=== PATIENT | female | born 1970 | race Asian ===

== ENCOUNTER 2018-12-04 21:17 | Emergency (ER) | payer MEDICAID ==
[~2018-12-04] VITALS: Wt 75.0 kg
--- NOTE | 2018-12-04 21:29 | ERD ---
ER Documentation Chief Complaint Chief Complaint niels ra from [facility] for first time seizures HPI This is a 48-year-old female who was brought in for first time seizure. 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 Just prior to arrival the nurse varun sed her have a tonic seizure for about a minute with a postictal state. Patient is in a relatively vegetative state with the family members here stay on occasion she can write with a pen. Patient has had a cough with a lot of productive sputum from her trach site. I do not know she had fever ROS All systems reviewed and are negative except as per history of present illness. Allergies Allergies: Coded Allergies: No Known Allergy (Unverified , 12/04/18) FmHx Family History: No coronary disease Physical Exam Vitals Vital Signs Date Temp Pulse Resp B/P (MAP) Pulse Ox O2 O2 Flow FiO2 Time Delivery Rate 12/05/18 85 14 100 30 02:06 12/04/18 86 16 99 30 23:55 12/04/18 98 20 98 30 21:52 12/04/18 98.1 98 16 105/81 100 21:24 (89) Physical Exam Const: Well-developed, well-nourished Head: Atraumatic, normocephalic Eyes: Normal Conjunctiva, PERRLA, EOMI, normal sclera, no nystagmus ENT: Normal External Ears, Nose and Mouth, moist mucus membranes. Neck: Full range of motion. No meningismus, no lymphadenopathy, copious yellow sputum from the trach. Resp: Some bilateral coarse rhonchi Cardio: Regular rate and rhythm, no murmurs, S1 S2 present Abd: Soft, non tender x 4, non distended. Normal bowel sounds, no guarding or rebound, no pulsitile abdominal masses or bruits Skin: No petechiae or rashes, no ecchymosis , no maculopapular rash Back: No midline or flank tenderness Ext: No cyanosis, or edema, FROM x 4, normal inspection, neurovascularly intact x 4 Neur: Awake and alert, STR 5/5 x 4, sensation intact x 4, no focal findings, cerebellum intact Psych: Normal Mood and Affect Result Diagram: 12/04/18 2215 12/04/18 2215 Results 24 hrs Laboratory Tests Test 12/04/18 22:12 12/04/18 22:15 12/04/18 23:39 Urine Color YELLOW Urine Clarity TURBID Urine pH 8.0 Urine Specific [place] 1.014 Urine Ketones NEGATIVE mg/dL Urine Nitrite NEGATIVE mg/dL Urine Bilirubin NEGATIVE mg/dL Urine Urobilinogen NEGATIVE mg/dL Urine Leukocyte Esterase 2+ Marsha/ul Urine Microscopic RBC 10 /HPF Urine Microscopic WBC 22 /HPF Urine Amorphous Crystals FEW /HPF Urine Bacteria MODERATE /HPF Urine Mucus FEW /HPF Urine Hemoglobin NEGATIVE mg/dL Urine Glucose NEGATIVE mg/dL Urine Total Protein NEGATIVE mg/dl White Blood Count 7.8 10^3/ul Red Blood Count 3.79 10^6/ul Hemoglobin 11.5 g/dl Hematocrit 35.9 % Mean Corpuscular Volume 94.7 fl Mean Corpuscular Hemoglobin 30.3 pg Mean Corpuscular 32.0 g/dl Hemoglobin Concent Red Cell Distribution Width 14.2 % Platelet Count 306 10^3/UL Mean Platelet Volume 9.9 fl Immature Granulocytes % 0.300 % Neutrophils % 66.7 % Lymphocytes % 20.2 % Monocytes % 6.5 % Eosinophils % 5.9 % Basophils % 0.4 % Nucleated Red Blood Cells % 0.0 /100WBC Immature Granulocytes # 0.020 10^3/ul Neutrophils # 5.2 10^3/ul Lymphocytes # 1.6 10^3/ul Monocytes # 0.5 10^3/ul Eosinophils # 0.5 10^3/ul Basophils # 0.0 10^3/ul Nucleated Red Blood Cells # 0.0 10^3/ul Prothrombin Time 12.4 Sec Prothrombin Time Ratio 1.0 INR International 0.91 Normalized Ratio Activated Partial Thromboplast 24.8 Sec Time Sodium Level 143 mmol/L Potassium Level 4.0 mmol/L Chloride Level 104 mmol/L Carbon Dioxide Level 32 mmol/L Anion Gap 7 Blood Urea Nitrogen 20 mg/dl Creatinine 0.30 mg/dl Est Glomerular Filtrat > 60 mL/min Rate mL/min Glucose Level 108 mg/dl Calcium Level 10.0 mg/dl Total Bilirubin 0.3 mg/dl Direct Bilirubin 0.00 mg/dl Indirect Bilirubin 0.3 mg/dl Aspartate Amino 50 IU/L Transf (AST/SGOT) Alanine 67 IU/L Aminotransferase (ALT/SGPT) Alkaline Phosphatase 141 IU/L Total Protein 7.5 g/dl Albumin 4.0 g/dl Globulin 3.50 g/dl Albumin/Globulin Ratio 1.14 Bedside Glucose 108 mg/dL Current Medications Medications Dose Sig/Anibal Start Time Status Last (Trade) Ordered Route PRN Stop Time Admin Dose Reason Admin Sodium 1,000 ml @ Q1H STAT 12/04/18 DC 12/04/18 Chloride 1,000 mls/hr IV 21:30 22:18 12/04/18 22:29 100 ml @ ONCE STAT 12/04/18 DC 12/04/18 Levetiracetam 400 mls/hr IVPB 21:30 22:58 12/04/18 21:44 Cefepime HCl 50 ml @ ONCE STAT 12/04/18 DC 12/04/18 100 mls/hr IVPB 21:30 22:18 12/04/18 21:59 Vancomycin 250 ml @ ONCE STAT 12/04/18 DC 12/04/18 HCl 125 mls/hr IVPB 21:30 23:29 12/04/18 23:29 Procedures/MDM Ordering MD: TARA LI DO Location: E/R Room/Bed: PROCEDURE: XR Chest. CLINICAL INDICATION: Seizure TECHNIQUE: Single frontal view of the chest was obtained COMPARISON: None FINDINGS: The heart and mediastinum are within normal limits. There is a tracheostomy t ube in place. There is a [employer] shunt catheter crossing the right hemithorax. There is a 1.5 cm left lower lobe nodular opacity. There is no pleural effusion or pneumothorax. RPTAT: AA IMPRESSION: 1.5 cm left lower lobe nodular opacity. Further evaluation with a CT chest is recommended. .Willie Dhaliwal MD, MD Date Time Electronically viewed and signed by .Willie Dhaliwal MD, on 12/04/2018 22:54 .S/ CC: TARA LI DO [id number] MR #: [id number] DOS: 12/04/182129 Ordering MD: TARA LI DO Location: E/R Room/Bed: PROCEDURE: CT Brain without IV contrast. CLINICAL INDICATION: Seizure. TECHNIQUE: A CT of the brain was performed on a multislice detector CT scanner utilizing axial sections from the skull base through the vertex without contrast. Images were reviewed on a high-resolution PACS workstation. Exam CTDlvol = 39 mGy-cm and DLP = 714 mGy-cm. One of the following 3 dose reduction techniques were used: Automated exposure control; adjustment of the mA and/or kV according to patient size; or use of iterative reconstruction technique. DICOM images are available. COMPARISON: None available FINDINGS: And there is a midline suboccipital craniotomy with overlying partially visualized extracranial fluid collection 2 x 2.4 cm in diameter. There is adjace nt metallic foreign bodies compatible with embolic material extending to the inferior aspect of the cerebellar vermis. There is a right occipital ventriculostomy catheter tip in the posterior body of the right lateral ventricle. There is no hydrocephalus. There are bilateral frontal calvarial roldan holes. There is encephalomalacia in the anterior left frontal lobe. There is age appropriate generalized central and peripheral atrophy. There is no midline shift. There is no definite acute stroke. There is no intracranial hemorrhage or abnormal extra-axial fluid collection. Visualized paranasal sinuses are clear. IMPRESSION: 1. No acute intracranial stroke or hemorrhage. 2. Midline inferior septal craniotomy with foreign body compatible with bulk material in the inferior midline cerebellum/vermis. Associated extracranial fluid collection overlying the craniotomy partially visualized. 3. Right occipital ventriculostomy catheter with tip in the posterior body right lateral ventricle. No hydrocephalus. 4. Left frontal encephalomalacia. 5. Bilateral frontal roldan holes. RPTAT: HMVK .Claude Jeffrey MD, MD Date Time Electronically viewed and signed by .Claude Jeffrey MD, MD on 12/05/2018 01:25 .K/ CC: TARA LI DO [id number] The patient has a urinary tract infection, there is no pneumonia though she does have some mucus from her trach but no gross trach infection. She was loaded with IV Keppra. It is probable that the UTI lower the seizure threshold. I discussed the case with Dr. Valle and we will discharge with Keppra and Macrobid. She can get an outpatient CT scan to evaluate the pulmonary nodule/opacity, Will change the Sahu Departure Diagnosis: Primary Impression: New onset seizure Additional Impression: Urinary tract infection Urinary tract infection type: site unspecified Hematuria presence: with hematuria Qualified Codes: N39.0 - Urinary tract infection, site not specified; R31.9 - Hematuria, unspecified Condition: Stable TARA LI DO Dec 04, 2018 21:29
[2018-12-04] MEDS ORDERED: SOD CHLORIDE 0.9% 1,000 ML IV STA (21:30)
[2018-12-04] MEDS ORDERED: LEVETIRACETAM 1000 MG (PMX) 100 ML IVPB STA (21:30)
[2018-12-04] MEDS ORDERED: VANCOMYCIN 1 GM (PMX) 250 ML IVPB STA (21:30)
[2018-12-04] MEDS ORDERED: CEFEPIME 1GM/50 ML (PMX) 50 ML IVPB STA (21:30)
[2018-12-05] MEDS ORDERED: LEVE750T70 PO (03:04)
[2018-12-05] MEDS ORDERED: NITR-58 PO (03:04)
[2018-12-05 05:40] VITALS: BP 113/86; PULSE 85; RESP 14
== END 2018-12-05 05:40 | disposition home or self-care (01) ==
LOC: E/R 21:17
DX: N39.0 Urinary tract infection, site not specified (principal); R40.2112 Coma scale, eyes open, never, at arrival to emergency department; R40.2212 Coma scale, best verbal response, none, at arrival to emergency department; R40.2312 Coma scale, best motor response, none, at arrival to emergency department
CPT/HCPCS: 36415; 51702; 70450; 71045; 80053; 81001; 82962; 85025; 85610; 85730; 87040; 87086; 94002; 94003; 96374; 96375; J0692; J1953; J3370; J7030; Z7502; Z7610